=== PATIENT | female | born 1990 | race Two or more races ===

== ENCOUNTER 2024-07-12 08:18 | Outpatient (RCR) | payer MEDICAID, SELFPAY ==
--- NOTE | 2024-07-05 08:55 | XR_ITS ---
Examination: Biophysical profile, ultrasound Date and time of exam: July 05, 2024 0859 hours INDICATIONS: Gestational diabetes Technique: Multiple transabdominal sonographic images of the pelvis abdomen obtained. Attention is directed to the breathing movement, gross body movement, amniotic fluid volume and tone. Findings: Amniotic fluid index 13.7 cm Total biophysical profile is 8 of 8. breathing movement is 2. Gross body movement is 2. tone is 2. Qualitative amniotic fluid volume is 2 Impression: Biophysical profile is 8 of 8.
[2024-07-05 09:41] VITALS: BP 120/76; PULSE 79; RESP 16; TEMP 37
--- NOTE | 2024-07-12 08:29 | XR_ITS ---
Examination: Biophysical profile, ultrasound Date and time of exam: July 12, 2024 0852 hours INDICATIONS: Gestational diabetes Technique: Multiple transabdominal sonographic images of the pelvis abdomen obtained. Attention is directed to the breathing movement, gross body movement, amniotic fluid volume and tone. Findings: Amniotic fluid index 13.7 cm Total biophysical profile is 8 of 8. breathing movement is 2. Gross body movement is 2. tone is 2. Qualitative amniotic fluid volume is 2 Impression: Biophysical profile is 8 of 8.
[2024-07-12 09:29] VITALS: BP 120/81; PULSE 81; RESP 16; TEMP 36.7
== END 2024-07-12 23:59 | disposition home or self-care (01) ==
LOC: S4S1 08:18
PROVIDERS: PCP Family Medicine; Referring Provider Advanced Practice Midwife; Visit Provider Advanced Practice Midwife
DX: O24.410 Gestational diabetes mellitus in pregnancy, diet controlled (principal); O09.523 Supervision of elderly multigravida, third trimester; O09.93 Supervision of high risk pregnancy, unspecified, third trimester; Z3A.37 37 weeks gestation of pregnancy
CPT/HCPCS: 59025; 76819

== ENCOUNTER 2024-07-16 11:24 | Observation (INO) | payer MEDICAID, SELFPAY ==
[2024-07-16 09:58] VITALS: BP 134/82; PULSE 84; RESP 18; TEMP 37.2; O2SAT 97; BMI 34.5
--- NOTE | 2024-07-16 10:38 | EDNOTE_ITS ---
ED Abdominal Pain RME/HPI General Chief Complaint: Abdominal Pain Stated complaint: HEMORRHOIDS, RECTAL PAIN, ABD PAIN, CAN'T HAVE BM Time seen by provider: 07/16/24 09:50 Arrival date/time: 07/16/24 09:44 This is a 34-year-old female with complaints of constipation, lower abdominal cramping when she pushes to have a bowel movement and rectal pain when she tries to have a bowel movement. Patient states that she has been given cream for her hemorrhoids in the past. Patient reports that it does not work. Patient is due July 28, 2024. Patient is 38 weeks . Related Data Home Medications ?Medication ?Instructions ?Recorded ?Confirmed prenat.vits,lopez,eab-[id number]-[id number] 1 tab PO QDAY 06/14/22 06/14/22 Previous Rx's ?Medication ?Instructions ?Recorded docusate sodium 100 mg capsule 100 mg PO BID #14 caps 07/16/24 (Colace) phenylephrine HCl 0.25 % rectal 1 supp MA BID PRN hemorrhoids #12 07/16/24 suppository (Preparation H (pe)) ea Allergies Allergy/AdvReac Type Severity Reaction Status Date / Time No Known Allergies Allergy Verified 06/14/22 22:11 Review of Systems Review of Systems Systems Reviewed: All systems reviewed, normal except as documented Past Medical History Surgical History SURGICAL: Negative Section ED Exam General General appearance: Present alert and in no apparent distress Head Head exam: Present atraumatic Eye Eye exam: Present normal appearance, PERRL and EOMI ENT ENT exam: Present normal exam, normal oropharynx and mucous membranes moist Neck Neck exam: Present normal inspection, full ROM and trachea midline Chest Chest inspection: Present normal inspection and symmetric chest wall rise Respiratory Respiratory exam: Present normal lung sounds bilaterally Cardiovascular Cardiovascular exam: Present regular rate, normal rhythm and normal heart sounds Abdominal Exam Abdominal exam: Present soft and other (round abdomen ) Rectal Exam Rectal exam: Present normal rectal tone and hemorrhoids (internal and external ) Extremities Exam Extremities exam: Present normal inspection and full ROM Back Exam Back exam: Present normal inspection and full ROM Neurological Exam Neurological exam: Present alert, oriented X3 and CN II-XII intact Psychiatric Psychiatric exam: Present normal affect and normal mood Skin Skin exam: Present warm, dry, intact and normal color Course Quality Measures none Orders Category Date Time Status Place in Observation Status Routine Admission 07/16/24 11:29 Active Non-Stress Test Now Care 07/16/24 11:30 Completed Sterile Vaginal Exam PRN Care 07/16/24 11:30 Ordered Discharge Routine Discharge 07/16/24 12:02 Active Docusate Sod [Colace] Med 07/16/24 10:39 Discontinued 100 mg PO X1 ONE Vital Signs Vital signs: Vital Signs Temperature 99.0 F 07/16/24 09:58 Pulse Rate 84 07/16/24 09:58 Respiratory Rate 18 07/16/24 09:58 Blood Pressure 134/82 H 07/16/24 09:58 Pulse Oximetry (%) 97 07/16/24 09:58 Oxygen Delivery Method Room Air 07/16/24 09:58 Abdominal Pain MDM MDM Narrative MDM Narrative:: discussed case with . Patient already has creams for hemrroids. Patient states it hurts for her to have a bowel movement. Pt given stool softners to help with this. Pt denies any other symptoms. Nausea, vomiting, diarrhea, fever. Pt will follow up with labor and deliovery at the time of dc and have baby checked out. Pt comfortable with plan of care. Patient data External records reviewed:: [facility] previous records Clinical information provided by:: patient Social determinants that could affect healthcare access:: none Patient has the following chronic illnesses:: none How is presenting disease/condition affected by chronic disease/condition?: no chronic disease Evaluation data The following diagnostics were reviewed and interpreted by me:: other (specify) (none ) Lab and/or radiology exams considered but not ordered:: none Interpretation Summary: none Medications / Prescriptions Medications or Prescriptions considered but not ordered:: none Medication administrations:: Medication Administration History Discontinued Medications Docusate Sodium (Docusate Sod 100 Mg Capsule) 100 mg PO X1 ONE; Protocol Stop: 07/16/24 10:40 see mar Consultations Consultation(s) initiated? (list below): No Diagnosis Differential diagnosis abdominal pain: abdominal pain, constipation and other (hemrroids) Most likely diagnosis given after review of the tests above:: hemmroid Admission Indicated Admission indicated?: not indicated Admission Request Was there a request for admission?: No Disposition Plan Disposition Plan: Discharge Discharge Attestation Discharge Attestation: The patient and all family members were given an opportunity to ask questions and understood the discharge instructions. Discharge instructions specifically effects, indications for sooner follow up or return to the emergency department, and the expected course of current diagnosis. Patient condition: Stable Discharge Plan Plan Patient Disposition: HOME (Self Care) Patient condition on transfer: Stable Prescriptions/Referrals Prescriptions/Med Rec: New Preparation H (pe) 0.25 % suppository 1 supp MA BID PRN (Reason: hemorrhoids) Qty: 12 0RF docusate sodium [Colace] 100 mg capsule 100 mg PO BID Qty: 14 0RF No Action Vitamin Tablet 1 tab PO QDAY Patient/Caregiver Discharge Instructions Discharge Activity: activity as tolerated Education Materials: Kick Counts, ED Hemorrhoids, Antepartum Discharge Print Language: Congolese Activity Restrictions/Additional Instructions: Please go to OB at follow up with primary provider in 1-2 days. Come back to ED if symptoms change or worsen to be evaluated. Follow-up with primary provider in 1 to 2 days. Come back to the emergency room if symptoms change or worsen regrese si tiene contraciones, sangrado, se rompe la omero de agua o no sientes a tu steve moverse. Stand Alone Forms: Laura Award Info., Patient Portal Info Letter Discharge Order Discharge Orders: Discharge (Routine); Ordered 07/16/24 Ordered By: Kassandra Smith
[2024-07-16 11:36] VITALS: BP 123/69; PULSE 76; BMI 36.4
== END 2024-07-16 12:10 | disposition home or self-care (01) ==
PROVIDERS: Admitting Provider Obstetrics & Gynecology; PCP Family Medicine; Visit Provider Advanced Practice Midwife
DX: O99.613 Diseases of the digestive system complicating pregnancy, third trimester (principal); K64.9 Unspecified hemorrhoids; K59.00 Constipation, unspecified; Z3A.38 38 weeks gestation of pregnancy
CPT/HCPCS: 59025; 59899

== ENCOUNTER 2024-07-21 17:05 | Inpatient (IN) | payer MEDICAID, SELFPAY ==
[2024-07-21] VITALS (24 sets, daily range): BP systolic 131–138; BP diastolic 72–80; PULSE 67–89; TEMP 36.7; O2SAT 98–100; BMI 35.2
--- NOTE | 2024-07-21 17:27 | XR_ITS ---
Examination: Complete OB ultrasound greater than 14 weeks Date and time of exam: July 21, 2024 1850 hrs. Indications: NST, labor evaluation Findings: Viable intrauterine single fetus with single amniotic sac presentation cephalic with vasa previa, three-vessel cord seen at the internal os Cardiac motion 160 BPM Placenta posterior grade 3 Umbilical cord insertion seen Amniotic fluid 14 Cervix 3.7 cm Ovaries obscured by the fetus. Composite estimated gestational age based on BPD, head circumference, abdominal circumference, femur length is 36 weeks 2 days Estimated weight 3149 g. Survey of intracranial anatomy, spinal anatomy, abdominal anatomy, four-chamber heart performed with no abnormalities identified. Impression: Viable intrauterine gestation cephalic presentation Vasa previa, three-vessel umbilical cord seen at the internal os Estimated gestational age 36 weeks 2 days
[2024-07-21 18:20] LABS: Basophils % (Auto) 0 % (0-2.5); Eosinophils % (Auto) 0 % (0-10); Hematocrit 35.8 % (36.0-46.0); Hemoglobin 12.1 g/dL (12.0-16.0); Immature Granulocytes % (Auto) 1 % (0-0); Immature Granulocytes Auto 0.07 Thou/mm3 (0.00-0.00); Lymphocytes # (Auto) 1.9 Thou/mm3 (1.0-4.8); Lymphocytes % (Auto) 16 % (10-50); Mean Corpuscular HGB Conc 33.8 g/dl (31.0-37.0); Mean Corpuscular Hemoglobin 29.5 pg (25.0-35.0); Mean Corpuscular Volume 87 fL (80-100); Monocytes # (Auto) 0.5 Thou/mm3 (0.0-0.8); Monocytes % (Auto) 4 % (0-12); Neutrophils # (Auto) 9.2 Thou/mm3 (1.8-7.7); Neutrophils % (Auto) 79 % (37-80); Nucleated Red Blood Cell % 0 /100 WBC (0); Platelet Count 250 Thou/mm3 (140-440); White Blood Count 11.7 Thou/mm3 (3.6-11.0)
[2024-07-21 18:51] LABS: Syphilis Nonreactive (Nonreactive)
[2024-07-21 21:06] LABS: Partial Thromboplastin Time 26.1 Seconds (22.0-36.0)
[2024-07-21 21:15] LABS: Alanine Aminotransferase 8 U/L (10-49); Albumin, Serum 3.6 gm/dL (3.5-5.0); Albumin/Globulin Ratio 1.3 (1.2-2.2); Alkaline Phosphatase 181 U/L (46-116); Anion Gap 12 (7-16); Aspartate Amino Transferase 14 U/L (0-34); BUN/Creatinine Ratio 12 Ratio (12-20); Bilirubin,Total 0.4 mg/dL (0.3-1.2); Blood Urea Nitrogen 6 mg/dL (9-23); Calcium (Corrected) 9.3 mg/dL (8.5-10.1); Carbon Dioxide 19.5 mMol/L (20.0-31.0); Chloride 107 mMol/L (98-107); Creatinine (Component) 0.5 mg/dL (0.6-1.3); Estimated Creatinine Clearance 126.8 mL/min (>60); Globulin 2.8 gm/dL (2.3-3.5); Glucose 81 mg/dL (74-106); Osmolality,Calculated 272 (275-295); Potassium 3.6 mMol/L (3.4-5.1); Sodium 138 mMol/L (136-145); Total Protein 6.4 gm/dL (5.7-8.2); eGFR > 60 See Note
[2024-07-22] VITALS (23 sets, daily range): BP systolic 95–160; BP diastolic 54–116; PULSE 60–89; RESP 12–20; TEMP 36.4–36.9; O2SAT 98–100
[2024-07-22] MEDS: FAMOTIDINE INJ 10 MG/ML VIAL 2 ML 20 MG IVP (07:27)
[2024-07-22] MEDS: ceFAZolin/D5W 2 GM IV 2 GM/100 ML BAG IV (07:27)
[2024-07-22] MEDS: METOCLOPRAMIDE INJ 5 MG/ML VIAL 2 ML 10 MG IVP (07:27)
--- NOTE | 2024-07-22 07:35 | PD.LDHP ---
Documentation for date of: 07/22/24 OB Labor/Induct. HPI History of Present Illness : 4 Term pregnancies: 3 pregnancies: 0 Living children: 3 History of Abortions: Spontaneous and Elective: 0 History of sections: No History of : No Date of last menstrual period: 10/22/23 Gestational age based on last menstrual period: 39 History of present illness: 34-year-old -0-0-3 at 39 weeks and 1 day presented to labor and delivery triage for her scheduled induction but was incidentally noted to have vasa previa on ultrasound. Patient was counseled about the risks and the pros and cons of vaginal delivery versus section. Patient elected in favor of delivery. She has poorly controlled gestational diabetes not on any meds Patient denies any other complaints History of Present Adequate Care: Yes Review of Systems Review of Systems Systems Reviewed: All systems reviewed, normal except as documented Past Medical History Surgical History SURGICAL: Negative Section Meds Home Medications and Allergies Home Medications ?Medication ?Instructions ?Recorded ?Confirmed ?Type prenat.vits,lopez,nko-oabv-nuokr 1 tab PO QDAY 06/14/22 06/14/22 History Allergies Allergy/AdvReac Type Severity Reaction Status Date / Time No Known Allergies Allergy Verified 06/14/22 22:11 OB Exam Physical Exam Vital signs: Temp Pulse BP Pulse Ox 98.2 F 78 135/75 H 99 07/22/24 03:50 07/22/24 07:30 07/22/24 07:30 07/21/24 19:56 Constitutional Constitutional: no acute distress Routine HEENT Exam Head: Present normocephalic and atraumatic Eye: Present EOMI and PERRL ENT: Present mucous membranes moist Routine Neck Exam Neck: Present supple and trachea midline Routine Cardiovascular Exam Cardiovascular: Present RRR Routine Abdominal Exam Abdominal: Present soft and normoactive bowel sounds Detailed Labor and Delivery Exam Dilation (cm): 1 Baseline heart rate: 140 monitor accelerations: 15x15 monitor decelerations: None Routine Extremities Exam Extremities: Present full ROM Routine Skin Exam Skin: Present intact, dry and warm Routine Neurological Exam Neurological: Present alert, oriented X3 and CN II-XII intact Routine Psychiatric Exam Psychiatric: Present normal affect and normal thought process OB Results Labs 07/21/24 18:16 07/21/24 20:22 Labs: Short CBC 12/12/24 Range/Units 18:16 WBC 11.7 H (3.6-11.0) Thou/mm3 Hgb 12.1 (12.0-16.0) g/dL Hct 35.8 L (36.0-46.0) % Plt Count 250 (140-440) Thou/mm3 BMP 07/21/24 20:22 Sodium 138 Potassium 3.6 Chloride 107 Carbon Dioxide 19.5 L BUN 6 L Creatinine 0.5 L Glucose 81 Calcium 9.0 Liver Function 07/21/24 Range/Units 20:22 Total Bilirubin 0.4 (0.3-1.2) mg/dL AST 14 (0-34) U/L ALT 8 L (10-49) U/L Alkaline Phosphatase 181 H (46-116) U/L Albumin 3.6 (3.5-5.0) gm/dL OB Assessment & Plan Assessment and Plan (1) Vasa previa: Status: Acute Assessment and plan: Admit to inpatient status for primary low transverse IV access, CBC, type and screen, LR at 125, RPR, COVID-19 test GBS negative Ancef 2 g prior to surgery start Sims catheter to drainage SCDs for DVT prophylaxis Anesthesia to preop for spinal anesthesia Scheduled for surgery.
--- NOTE | 2024-07-22 08:19 | PD.GYNPROC ---
Operative Note - SUCTION WORKER Procedure Date of procedure: 07/22/24 Procedure Performed: Primary low-transverse section Indication: 34-year-old G4, P3 at 39 weeks and 1 day with poorly controlled gestational diabetes on diet alone Newly diagnosed vasa previa Anesthesia type: Spinal Procedure description: Informed consent was obtained and the patient was taken to the operating room. Identity was confirmed by double identifiers and she was placed on the operating table. Spinal anesthesia was administered and she was positioned in the supine position. The abdomen and perineum were prepped in the usual sterile fashion and a Sims catheter was placed to continuous drainage. Sterile drapes were applied. The incision site was tested for adequacy of anesthesia. A Pfannenstiel skin incision was made with a scalpel and carried to the subcutaneous fat up to the rectus fascia. The rectus fascia was incised on either side of the midline and the incisions were extended bilaterally. The fascia was gently dissected off the ventral surface of the rectus muscle both superiorly and inferiorly. The rectus bellies were gently in the midline and the peritoneum was identified and entered bluntly using the surgeon's finger. The peritoneal opening was now stretched to create an adequate opening for access to the uterus. Bang O-ring retractor was placed for adequate visualization. The anterior surface of the uterus was palpated. The bladder reflection was identified and a Valdemar Garcia low transverse uterine incision was made in the lower uterine segment taking care to avoid the bladder. Uterine entry was accomplished bluntly and the opening was stretched to create adequate room. The amniotic membranes were now ruptured and clear amniotic fluid was released. The fetus was noted to be in the vertex position. The head was gently elevated out of the maternal pelvis and single loop of nuchal cord was found around the neck. The cord was released and the rest of the shoulders and body were delivered by gentle fundal pressure. Umbilical cord was doubly clamped, divided and the infant was handed over to the waiting team. Cord gas samples were obtained. The placenta was delivered by gentle traction on the umbilical cord. The interior of the uterus was now thoroughly cleaned of all blood and debris and membranes. The hysterotomy angles were grasped by a pair of Allis clamps and the hysterotomy was closed using 1 Monocryl suture in 2 layers. The first layer was used to approximate the muscle in a running locked fashion, the second layer was used to approximate the thickness of the myometrium and uterine serosa in an imbricated manner. Once the repair was completed the hysterotomy was inspected and noted to be adequately hemostatic. The hysterotomy was once again inspected and hemostasis was noted to be satisfactory. The Bang retractor was now removed. The peritoneal edges were re approximated. The rectus muscles were re approximated. The rectus fascia was now repaired using 0 Vicryl suture in a running fashion. The subcutaneous layer was now copiously irrigated using warm normal saline. All bleeding points were cauterized using the Bovie. The subcutaneous fat was closed using 3-0 Vicryl. The skin was closed using 4-0 Monocryl in a subcuticular fashion. The skin was cleaned and a sterile dressing was applied. The patient was now undraped, the abdomen and back were thoroughly cleaned and she was not transferred to the recovery room in a stable and awake condition. The patient tolerated the entire procedure well. No complications were encountered. All instrument, sponge and lap counts were correct x2. Estimated blood loss (ml): 600 Complications: none Surgical staff Operation Date: 07/22/24 07:45 Case Staff LIFE SKILLS INSTRUCTOR: Rodri Baxter RN First Assistant: Alda Anders Diagnosis Discharge Diagnosis (1) Vasa previa: Status: Acute (2) delivery delivered: Status: Acute Problem List Completed Was Problem List Reviewed/Reconciled?: Yes
--- NOTE | 2024-07-22 08:21 | OBDSUM_ITS ---
Data (Santos) Data Hx Section: No : 4 Para: 3 Term: 3 : 0 : 0 Delivery Data (Santos) Labor Data ROM Date: 07/22/24 ROM Time: 03:15 Rupture Type: SROM Amniotic Fluid: Thin Meconium Delivery Data Labor Onset Stage 1 Date: 07/22/24 Labor Onset Stage 1 Time: 08:04 Labor Onset Stage 2 Date: 07/22/24 Labor Onset Stage 2 Time: 08:04 Delivery Date: 07/22/24 Delivery Time: 08:04 Placenta Delivery Date: 07/22/24 Placenta Delivery Time: 08:05 Delivered by: Dane Miller Delivery nurse: Antonietta Damon Other staff at delivery: Equine Science Instructor Other staff at delivery: Nursery Nurse Other staff at delivery: RT Other staff at delivery: Alda Monreal Other staff at delivery: Lotus Bello Other staff at delivery: CHAPS Delivery Method Delivery: Delivery Type: Primary Anesthesia Type Primary Anesthesia: Spinal Data (Santos) [place] Data Gender: Female Infant Weight Grams: 3345 1 Minute Total: 9 5 Minute Total: 9
[2024-07-22] MEDS: OXYTOCIN in NS 20 units 20 UNIT/1,000 ML BAG 125 UNIT IV ×2 (09:07→17:43)
[2024-07-22] MEDS: KETOROLAC INJ 30 MG/ML VIAL IVP (20:14)
[2024-07-22] MEDS: SIMETHICONE 80 MG CHEW PO (20:45)
[2024-07-22] MEDS: Milk Of Magnesia Susp 30 ML UDC PO (20:45)
[2024-07-23] MEDS: SIMETHICONE 80 MG CHEW PO (04:14)
[2024-07-23] MEDS: KETOROLAC INJ 30 MG/ML VIAL IVP (04:14)
[2024-07-23 04:17] VITALS: BP 132/77; PULSE 78; RESP 18; TEMP 36.6; O2SAT 98
[2024-07-23 06:44] LABS: Basophils % (Auto) 0 % (0-2.5); Eosinophils % (Auto) 0 % (0-10); Hematocrit 27.9 % (36.0-46.0); Hemoglobin 9.4 g/dL (12.0-16.0); Immature Granulocytes % (Auto) 1 % (0-0); Immature Granulocytes Auto 0.06 Thou/mm3 (0.00-0.00); Lymphocytes # (Auto) 1.7 Thou/mm3 (1.0-4.8); Lymphocytes % (Auto) 13 % (10-50); Mean Corpuscular HGB Conc 33.7 g/dl (31.0-37.0); Mean Corpuscular Hemoglobin 29.7 pg (25.0-35.0); Mean Corpuscular Volume 88 fL (80-100); Monocytes # (Auto) 0.5 Thou/mm3 (0.0-0.8); Monocytes % (Auto) 4 % (0-12); Neutrophils # (Auto) 10.7 Thou/mm3 (1.8-7.7); Neutrophils % (Auto) 82 % (37-80); Nucleated Red Blood Cell % 0 /100 WBC (0); Platelet Count 198 Thou/mm3 (140-440); RDW Standard Deviation 46.7 fL (36.4-46.3); Red Blood Count 3.16 Miln/mm3 (4.00-5.20)
[2024-07-23 07:30] VITALS: BP 114/72; PULSE 90; RESP 18; TEMP 36.7; O2SAT 99
--- NOTE | 2024-07-23 09:34 | ESPR_ITS ---
Subjective Subjective Interval history: Delivery type: for vasa previa Patient doing well this morning. No acute complaints. Ambulating, tolerating p.o. and voiding without difficulty. HTN/Pre-Eclampsia screen: No chest pain, shortness of breath, headache, visual changes, epigastric or right upper quadrant pain. Breast-feeding, lochia diminishing. Bowel: Flatus+/ BM+ Exam Vital Signs Temp Pulse Resp BP Pulse Ox O2 Del Method 97.9 F 78 18 132/77 H 98 Room Air 07/23/24 04:17 07/23/24 04:17 07/23/24 04:17 07/23/24 04:17 07/23/24 04:17 07/23/24 04:17 Constitutional Constitutional: no acute distress Routine HEENT Exam Head: Present normocephalic and atraumatic Eye: Present EOMI and PERRL ENT: Present mucous membranes moist Routine Neck Exam Neck: Present supple and trachea midline Routine Respiratory Exam Respiratory: Present chest non-tender, lungs clear, normal breath sounds and no resp distress Routine Cardiovascular Exam Cardiovascular: Present RRR Routine Abdominal Exam Abdominal: Present soft and normoactive bowel sounds Routine Extremities Exam Extremities: Present full ROM Routine Skin Exam Skin: Present intact, dry and warm Routine Neurological Exam Neurological: Present alert, oriented X3 and CN II-XII intact Routine Psychiatric Exam Psychiatric: Present normal affect and normal thought process Objective Labs 07/23/24 05:40 07/21/24 20:22 Labs: Laboratory Results - last 24 hr 07/23/24 05:40 WBC 13.0 H RBC 3.16 L Hgb 9.4 L D Hct 27.9 L MCV 88 MCH 29.7 MCHC 33.7 RDW Std Deviation 46.7 H Plt Count 198 D Neut % (Auto) 82 H Lymph % (Auto) 13 Harvey % (Auto) 4 Eos % (Auto) 0 Baso % (Auto) 0 Neut # (Auto) 10.7 H Lymph # (Auto) 1.7 Harvey # (Auto) 0.5 Eos # (Auto) 0.0 Baso # (Auto) 0.0 Immature Gran # (Auto) 0.06 H Absolute Nucleated RBC 0.00 Immature Gran % 1 H Nucleated RBC % 0 Assessment & Plan Problem List (1) Vasa previa: Status: Acute (2) delivery delivered: Status: Acute Assessment and plan: 1. Continue routine /post-op care 2. Labs reviewed, cbc appropriate 3. Remove dressing/Sims 4. Encourage to ambulate, shower 5. Encourage PO intake, breast feeding Time Spent With Patient Time: Total time spent is greater than 50% in coordination of care (as documented) at patient's floor/unit and/or counseling patient:
[2024-07-23 11:40] VITALS: BP 121/79; PULSE 76; RESP 18; TEMP 37.1; O2SAT 98
[2024-07-23] MEDS: IBUPROFEN TAB 400 MG TABLET 800 MG PO (18:00)
[2024-07-23 19:45] VITALS: BP 118/74; PULSE 80; RESP 16; TEMP 36.8; O2SAT 97
[2024-07-24 03:45] VITALS: BP 135/76; PULSE 74; RESP 16; TEMP 36.8
[2024-07-24 08:15] VITALS: BP 114/73; PULSE 73; RESP 16; TEMP 36.9; O2SAT 97
[2024-07-24] MEDS: DOCUSATE SOD 100 MG CAPSULE PO (08:21)
[2024-07-24] MEDS: IBUPROFEN TAB 400 MG TABLET 800 MG PO (08:22)
--- NOTE | 2024-07-24 08:55 | PD.LDPPPRG ---
Subjective Subjective Interval history: Delivery type: Patient doing well this morning. No acute complaints. Ambulating, tolerating p.o. and voiding without difficulty. HTN/Pre-Eclampsia screen: No chest pain, shortness of breath, headache, visual changes, epigastric or right upper quadrant pain. Breast-feeding, lochia diminishing. Bowel: Flatus+/ BM+ Exam Vital Signs Temp Pulse Resp BP Pulse Ox O2 Del Method 98.2 F 74 16 135/76 H 97 Room Air 07/24/24 03:45 07/24/24 03:45 07/24/24 03:45 07/24/24 03:45 07/23/24 19:45 07/24/24 03:45 Constitutional Constitutional: no acute distress Routine HEENT Exam Head: Present normocephalic and atraumatic Eye: Present EOMI and PERRL ENT: Present mucous membranes moist Routine Neck Exam Neck: Present supple and trachea midline Routine Respiratory Exam Respiratory: Present chest non-tender, lungs clear, normal breath sounds and no resp distress Routine Cardiovascular Exam Cardiovascular: Present RRR Routine Abdominal Exam Abdominal: Present soft and normoactive bowel sounds Routine Extremities Exam Extremities: Present full ROM Routine Skin Exam Skin: Present intact, dry and warm Routine Neurological Exam Neurological: Present alert, oriented X3 and CN II-XII intact Routine Psychiatric Exam Psychiatric: Present normal affect and normal thought process Objective Labs 07/23/24 05:40 07/21/24 20:22 Assessment & Plan Problem List (1) Vasa previa: Status: Acute (2) delivery delivered: Status: Acute Assessment and plan: PPD/POD#2 1. Continue routine care 2. Transition to PO meds. 3. Encourage to ambulate/ breast-feed 4. Anticipate discharge home today. Time Spent With Patient Time: Total time spent is greater than 50% in coordination of care (as documented) at patient's floor/unit and/or counseling patient:
--- NOTE | 2024-07-24 08:59 | PD.LDDS ---
DS: Providers Provider Date of admission: 07/21/24 17:05 Primary care physician: Physician No Primary/Family Admitting Provider: Kassandra Smith CNM Attending Provider on Admission: Dane Miller MD Consults: 07/22/24 09:28 Referral Routine Comment: Attending Provider on DC: Dane Miller MD Discharging Provider: Dane Miller MD DS: Diagnosis Discharge Diagnosis (1) delivery delivered: Status: Acute (2) Vasa previa: Status: Acute Problem List Completed Was Problem List Reviewed/Reconciled?: Yes Summary/Hosp Course Brief History: 34-year-old -0-0-3 at 39 weeks and 1 day presented to labor and delivery triage for her scheduled induction but was incidentally noted to have vasa previa on ultrasound. Patient was counseled about the risks and the pros and cons of vaginal delivery versus section. Patient elected in favor of delivery. She has poorly controlled gestational diabetes not on any meds Patient denies any other complaints Peripartum Data Procedures: Procedures Operation Date: 07/22/24 07:45 Actual Procedure Side Surgeon p in OB Dane Miller MD Time Spent with Patient Time attestation: Total time spent providing and/or coordinating discharge services: Exam Vital Signs Temp Pulse Resp BP Pulse Ox O2 Del Method 98.2 F 74 16 135/76 H 97 Room Air 07/24/24 03:45 07/24/24 03:45 07/24/24 03:45 07/24/24 03:45 07/23/24 19:45 07/24/24 03:45 Discharge Plan Plan Patient Disposition: HOME (Self Care) Patient condition on transfer: Stable Prescriptions/Referrals Prescriptions/Med Rec: New hydrocodone-acetaminophen 5-325 mg Tablet 1 tab PO Q6HR MDD 4 PRN (Reason: Patient rated pain 9 to 10) 5 Days Qty: 20 0RF ibuprofen 400 mg Tablet 800 mg PO Q8HR PRN (Reason: Pain Scale 4-6 (Moderate) 10 Days Qty: 40 0RF Continued docusate sodium [Colace] 100 mg capsule 100 mg PO BID 30 Days Qty: 30 0RF Preparation H (pe) 0.25 % suppository 1 supp DC BID PRN (Reason: hemorrhoids) Qty: 12 0RF prenat.vits,lopez,ayc-[id number] Tablet 1 tab PO QDAY Referrals: No Primary/Family,Physician [Primary Care Provider] - Patient/Caregiver Discharge Instructions Education Materials: C Section Dc, After a , Feel Healthy After, ED Hemorrhoids Print Language: Citizen [place] Stand Alone Forms: Laura Award Info., Patient Portal Info Letter, DC from Surgery Planned Discharge Date 07/24/24
[2024-07-28 23:34] LABS: Albumin, Random Urine 100 %; Alpha 1 Globulin, Random Urine 0 %; Alpha 2 Globulin, Random Urine 0 %; Beta Globulin, Random Urine 0 %; Gamma Globulin, Random Urine 0 %; Protein,Total,Random Urine 32 mg/dL (5-24); Protein/Creatinine Ratio 344 mg/g creat (24-184)
[2024-07-29 13:38] LABS: Creatinine, Random Urine 93 mg/dL (20-275); Protein/Creatinine Ratio mg/mg 0.344 (0.024-0.184)
== END 2024-07-24 15:15 | disposition home or self-care (01) | DRG 540 ==
LOC: S4SX 07-22 06:58 → S4NX 07-22 08:06
PROVIDERS: Admitting Provider Advanced Practice Midwife; Visit Provider Obstetrics & Gynecology
PROC: 10D00Z1 Extraction of Products of Conception, Low, Open Approach (ICD-10-PCS; CPT 59514; principal; 2024-07-22 07:30)
DX: O69.4XX0 Labor and delivery complicated by vasa previa, not applicable or unspecified (principal); O24.429 Gestational diabetes mellitus in childbirth, unspecified control; O69.81X0 Labor and delivery complicated by cord around neck, without compression, not applicable or unspecified; O77.0 Labor and delivery complicated by meconium in amniotic fluid; Z3A.39 39 weeks gestation of pregnancy; Z37.0 Single live birth
CPT/HCPCS: 36415; 59409; 76805; 80053; 82570; 84156; 84166; 85025; 85730; 86780; 86850; 86900; 86901; 86923; 94762; A4649; J0689; J1885; J2274; J2371; J2590; J2765; J3010; J3490; A9270; J0690; J2270